=== PATIENT | female | born 1960 | race American Indian/Alaskan Native ===

== ENCOUNTER 2019-03-03 22:36 | Inpatient (IN) | payer BC ==
[2019-03-03 23:28] LABS: Basophils # (Auto) 0.1 K/mm3 (0.0-0.1); Basophils % (Auto) 2.1 % (0.0-1.8); Eosinophils # (Auto) 0.1 K/mm3 (0.0-0.4); Eosinophils % (Auto) 1.4 % (0.0-4.3); Hematocrit 40.6 % (30.3-42.9); Hemoglobin 13.6 gm/dl (10.1-14.3); Lymphocytes # (Auto) 1.7 K/mm3 (1.2-5.4); Lymphocytes % (Auto) 29.8 % (13.4-35.0); Mean Corpuscular HGB Conc 34 % (30-34); Mean Corpuscular Volume 90 fl (79-97); Monocytes # (Auto) 0.6 K/mm3 (0.0-0.8); Monocytes % (Auto) 10.3 % (0.0-7.3); Platelet Count 129 K/mm3 (140-440); Red Blood Count 4.51 M/mm3 (3.65-5.03); Red Cell Distribution Width 15.7 % (13.2-15.2)
[2019-03-03 23:38] LABS: INR 1.02 (0.87-1.13)
[2019-03-03 23:55] LABS: Creatine Kinase MB 1.9 ng/mL (0.0-4.0)
--- NOTE | 2019-03-03 23:55 | XRay Report ---
CHEST 1 VIEW INDICATION / CLINICAL INFORMATION: Syncope. COMPARISON: None available. FINDINGS: SUPPORT DEVICES: ICD is in place on the left. HEART / MEDIASTINUM: Slightly enlarged LUNGS / PLEURA: No significant pulmonary or pleural abnormality. No pneumothorax. ADDITIONAL FINDINGS: No significant additional findings. IMPRESSION: 1. No acute findings. Signer Name: Chuckie Lockhart MD Signed: 03/03/2019 11:50 PM Workstation Name: [id number]
[2019-03-03 23:57] LABS: Alanine Aminotransferase 10 units/L (7-56); Albumin 3.8 g/dL (3.9-5); BUN/Creatinine Ratio 24; Blood Urea Nitrogen 17 mg/dL (7-17); Calcium 9.2 mg/dL (8.4-10.2); Hemolysis Index 2
--- NOTE | 2019-03-04 00:05 | Cat Scan Report ---
Head CT without intravenous contrast INDICATION: Syncope COMPARISON: None FINDINGS: The ventricles are normal in size and position. No hemorrhage or extra-axial fluid collecti on. No edema or mass effect. No focal infarct seen. Portions of the sinuses visualized are clear. No skull fracture identified. IMPRESSION: Negative head CT Automated exposure control was utilized to diminish radiation dose Signer Name: Chuckie Lockhart MD Signed: 03/04/2019 12:00 AM Workstation Name: [id number]
--- NOTE | 2019-03-04 00:59 | Emergency Department Report ---
ED Syncope HPI - General Chief Complaint: Syncope Stated Complaint: SYNCOPE Time Seen by Provider: 03/03/19 22:53 Source: patient, family, EMS - History of Present Illness Initial Comments: patient presents to ER via EMS after she went unresponsive for 15-30 seconds while seating at a table to eat dinner. She has a h/o chf, htn, aicd dependent. Prior to her syncopal episode, she felt her heart racing, but no chest pain. She also denies any firing of her AICD, as she has experienced that in the past. Timing/Prior Episodes: single episode today Precipitating Factors: Positive: lightheadedness, rapid heart beat Context: sitting Loss of Consciousness: brief (seconds) Current Symptoms: back to normal - Related Data Allergies/Adverse Reactions: Allergies codeine Allergy (Verified 03/03/19 22:53) Rash ED Review of Systems ROS: Stated complaint: SYNCOPE Other details as noted in HPI Comment: All other systems reviewed and negative Cardiovascular: syncope Gastrointestinal: denies: abdominal pain, nausea, vomiting ED Past Medical Hx - Past Medical History Hx Hypertension: Yes Hx CVA: Yes (no deficits) Hx Heart Attack/AMI: Yes Hx Congestive Heart Failure: Yes - Surgical History Hx Internal Defibrillator: Yes Additional Surgical History: , breast reduction - Social History Smoking Status: Never Smoker Substance Use Type: None ED Physical Exam - General Limitations: No Limitations General appearance: alert, in no apparent distress - Head Head exam: Present: atraumatic, normocephalic - Eye Eye exam: Present: normal appearance, PERRL, EOMI - ENT ENT exam: Present: normal exam, normal orophraynx - Neck Neck exam: Present: normal inspection - Respiratory Respiratory exam: Present: normal lung sounds bilaterally - Cardiovascular Cardiovascular Exam: Present: regular rate, normal rhythm - GI/Abdominal GI/Abdominal exam: Present: soft, normal bowel sounds - Neurological Exam Neurological exam: Present: alert, oriented X3, CN II-XII intact - Psychiatric Psychiatric exam: Present: normal affect - Skin Skin exam: Present: warm ED Course Vital Signs 03/03/19 03/03/19 23:03 23:16 Temperature 98.4 F Pulse Rate 94 H Respiratory 20 20 Rate Blood Pressure 124/74 [Left] O2 Sat by Pulse 98 98 Oximetry ED Medical Decision Making - Lab Data Result diagrams: 03/03/19 23:14 03/03/19 23:14 - EKG Data Interpretation: nonspecific ST-T wave vicky - Radiology Data Radiology results: report reviewed - Medical Decision Making 58 y.o female with recent syncope. [place] [facility] [place] Critical care attestation.: If time is entered above; I have spent that time in minutes in the direct care of this critically ill patient, excluding procedure time. ED Disposition Clinical Impression: Syncope Qualifiers: Syncope type: unspecified Qualified Code(s): R55 - Syncope and collapse Disposition: OP ADMIT IP TO THIS HOSP Is pt being admited?: Yes Does the pt Need Aspirin: No Condition: Stable Instructions: Syncope (ED) Referrals: LULA STEPHENSON MD [Primary Care Provider] - 3-5 Days
[2019-03-04] MEDS ORDERED: TYLENOL PO PRN (01:26)
[2019-03-04] MEDS ORDERED: ZOFRAN IV PRN (01:26)
[2019-03-04] MEDS ORDERED: SODIUM CHLORIDE FLUSH SYRINGE 10 ML IV PRN (01:26)
[2019-03-04] MEDS ORDERED: K-DUR PO ONE (01:33)
--- NOTE | 2019-03-04 02:21 | History and Physical Report ---
<LORETO VILLAGOMEZ - Last Filed: 03/04/19 02:38> History of Present Illness Date of examination: 03/04/19 Date of admission: 03/04/2019 Chief complaint: Syncopal episode History of present illness: 58-year-old -[place] female with history of CHF with AICD in situ, HTN, HLD, and questionable history of TIA presents [facility] ED via EMS with complaint of syncopal episode x1. Pt's daughter is present at bedside and has assisted with providing history. Pt states that she was at a restaurant and sitting at the table to have dinner with her family, when she felt like her heart was racing. Shortly after pt experienced a syncopal episode and doesn't recall the event. As per pt's daughter, her mother's head tilted forward, eyes closed and her mouth was open with small amount of drool. The daughter gave her mother ASA 81mg x2 and attempted to check her BP, but was unable to get an accurate reading. EMS was called and she was transported to our facility for further evaluation. 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 She goes to [facility]'s cardiology clinic. Pt states that she had an echocardiogram earlier this year which showed an ejection fraction of 20-25%. Denies: Chest pain, shortness of breath, or firing of AICD, headache, fever, nausea, or recent sick contact Past History Past Medical History: heart failure, hypertension, hyperlipidemia, other (hx TIA x2 according to pt and her daughter) Past Surgical History: , Other (s/p ICD, breast reduction surgery) Social history: lives with family Family history: no significant family history Medications and Allergies Allergies Allergy/AdvReac Type Severity Reaction Status Date / Time codeine Allergy Rash Verified 03/03/19 22:53 Active Meds: Active Medications Acetaminophen (Tylenol) 650 mg PO Q4H PRN PRN Reason: Pain MILD(1-3)/Fever >100.5/ODOM Docusate Sodium (Colace) 100 mg PO BID KEARA Enoxaparin Sodium (Lovenox) 40 mg SUB-Q QDAY KEARA Ondansetron HCl (Zofran) 4 mg IV Q8H PRN PRN Reason: Nausea And Vomiting Sodium Chloride (Sodium Chloride Flush Syringe 10 Ml) 10 ml IV BID KEARA Sodium Chloride (Sodium Chloride Flush Syringe 10 Ml) 10 ml IV PRN PRN PRN Reason: LINE FLUSH Review of Systems All systems: negative (reviewed and no additional remarkable complaints except as noted) Constitutional: fatigue Cardiovascular: palpitations, high blood pressure Neurological: syncope Exam - Physical Exam Narrative exam: Physical exam General appearance: Present: No acute distress alert and oriented 3, pleasant, obese, -[place] adult female - EENT Eyes: Present: PERRL, EOM intact ENT: hearing intact, normal dentition - Neck Neck: Present: supple, normal ROM - Respiratory Respiratory effort: Non-labored Respiratory:CTA laterally - Cardiovascular Heart rate: 93 (bpm) Rhythm: SR, nonspecific T-wave abnormality Heart Sounds: Present: S1 & S2. Absent: rub, click - Extremities Extremities: no ischemia, pulses intact, abnormal (BLE trace edema) - Peripheral Assessment Peripheral Pulses: within normal limits - Abdominal General gastrointestinal: Obese, soft, non-tender, normal bowel sounds - Integumentary Integumentary: Present: warm, dry - Musculoskeletal Musculoskeletal: Normal extremities - Psychiatric Psychiatric: Appropriate for situation, cooperative - Constitutional Vitals: Temp Pulse Resp BP Pulse Ox 98.4 F 82 14 110/77 98 03/03/19 23:03 03/04/19 01:45 03/04/19 01:45 03/04/19 01:45 03/04/19 01:45 Results - Labs CBC & Chem 7: 03/03/19 23:14 03/03/19 23:14 Labs: Laboratory Last Values WBC 5.8 K/mm3 (4.5-11.0) 03/03/19 23:14 RBC 4.51 M/mm3 (3.65-5.03) 03/03/19 23:14 Hgb 13.6 gm/dl (10.1-14.3) 03/03/19 23:14 Hct 40.6 % (30.3-42.9) 03/03/19 23:14 MCV 90 fl (79-97) 03/03/19 23:14 MCH 30 pg (28-32) 03/03/19 23:14 MCHC 34 % (30-34) 03/03/19 23:14 RDW 15.7 % (13.2-15.2) H 03/03/19 23:14 Plt Count 129 K/mm3 (140-440) L 03/03/19 23:14 Lymph % (Auto) 29.8 % (13.4-35.0) 03/03/19 23:14 [place] % (Auto) 10.3 % (0.0-7.3) H 03/03/19 23:14 Eos % (Auto) 1.4 % (0.0-4.3) 03/03/19 23:14 Baso % (Auto) 2.1 % (0.0-1.8) H 03/03/19 23:14 Lymph # 1.7 K/mm3 (1.2-5.4) 03/03/19 23:14 [place] # 0.6 K/mm3 (0.0-0.8) 03/03/19 23:14 Eos # 0.1 K/mm3 (0.0-0.4) 03/03/19 23:14 Baso # 0.1 K/mm3 (0.0-0.1) 03/03/19 23:14 Seg Neutrophils % 56.4 % (40.0-70.0) 03/03/19 23:14 Seg Neutrophils # 3.3 K/mm3 (1.8-7.7) 03/03/19 23:14 PT 13.1 Sec. (12.2-14.9) 03/03/19 23:14 INR 1.02 (0.87-1.13) 03/03/19 23:14 Sodium 141 mmol/L (137-145) 03/03/19 23:14 Potassium 3.1 mmol/L (3.6-5.0) L 03/03/19 23:14 Chloride 102.7 mmol/L (98-107) 03/03/19 23:14 Carbon Dioxide 29 mmol/L (22-30) 03/03/19 23:14 12 mmol/L 03/03/19 23:14 BUN 17 mg/dL (7-17) 03/03/19 23:14 0.7 mg/dL (0.7-1.2) 03/03/19 23:14 Estimated GFR > 60 ml/min 03/03/19 23:14 24 % 03/03/19 23:14 Glucose 106 mg/dL (65-100) H 03/03/19 23:14 Calcium 9.2 mg/dL (8.4-10.2) 03/03/19 23:14 0.30 mg/dL (0.1-1.2) 03/03/19 23:14 AST 13 units/L (5-40) 03/03/19 23:14 ALT 10 units/L (7-56) 03/03/19 23:14 99 units/L (35-129) 03/03/19 23:14 66 units/L (30-135) 03/03/19 23:14 CK-MB (CK-2) 1.9 ng/mL (0.0-4.0) 03/03/19 23:14 CK-MB (CK-2) Rel Index 2.8 (0-4) 03/03/19 23:14 < 0.010 ng/mL (0.00-0.029) 03/03/19 23:14 8.2 g/dL (6.3-8.2) 03/03/19 23:14 3.8 g/dL (3.9-5) L 03/03/19 23:14 0.9 % 03/03/19 23:14 - Imaging and Cardiology EKG: image reviewed (93bpm SR ) Chest x-ray: report reviewed (LUNGS / PLEURA: No significant pulmonary or pleural abnormality. No pneumothorax), image reviewed Imaging and Cardiology: CT Head: Findings: The ventricles are normal in size and position. No hemorrhage or extra-axial fluid collection. No edema or mass effect. No focal infarct seen. Portions of the sinuses visualized are clear. No skull fracture identified. Impression: Negative head CT Assessment and Plan Assessment and plan: 58-year-old -[place] female with history of CHF with AICD in situ, HTN, HLD, and questionable history of TIA presents [facility] ED via EMS with complaint of syncopal episode x1. Syncope -Witnessed syncopal episode -Patient was unresponsive for 15-30 seconds while sitting at the table with family -CT head negative for acute abnormality -Carotid Doppler pending -Pt states that she has history of TIA 2 ( 2013 & 2016) -Neurology consulted -on ASA and statin Hypokalemia -Potassium on admission 3.1 -Received potassium replacement -Continue to monitor electrolytes -Fleet as needed CHF -AICD in situ -Pt reports EF 20-25% seen on Echo done earlier this year -Resume heart failure meds to optimize cardiac function once med rec has been completed -Cardiology consulted ([facility]) -Troponin mehran x1, continue to trend HTN -Monitor BP -Syndrome home antihypertensive once med rec has been completed -IV hydralazine when necessary HLD -Lipid panel pending -on statin DVT PPX -on Lovenox Advance Directives: No VTE prophylaxis?: Chemical Plan of care discussed with patient/family: Yes <MICHELLE LOPEZ - Last Filed: 03/04/19 05:35> History of Present Illness Date of admission: 03/04/19 02:23 Medications and Allergies Active Meds: Active Medications Acetaminophen (Tylenol) 650 mg PO Q4H PRN PRN Reason: Pain MILD(1-3)/Fever >100.5/ODOM Atorvastatin Calcium (Lipitor) 40 mg PO QHS KEARA Docusate Sodium (Colace) 100 mg PO BID KEARA Enoxaparin Sodium (Lovenox) 40 mg SUB-Q QDAY KEARA Hydralazine HCl (Apresoline) 10 mg IV Q4HR PRN PRN Reason: Blood Pressure Ondansetron HCl (Zofran) 4 mg IV Q8H PRN PRN Reason: Nausea And Vomiting Sodium Chloride (Sodium Chloride Flush Syringe 10 Ml) 10 ml IV BID KEARA Sodium Chloride (Sodium Chloride Flush Syringe 10 Ml) 10 ml IV PRN PRN PRN Reason: LINE FLUSH Exam - Constitutional Vitals: Temp Pulse Resp BP Pulse Ox 98.4 F 71 18 90/60 97 03/03/19 23:03 03/04/19 03:15 03/04/19 03:15 03/04/19 03:15 03/04/19 03:15 Results - Labs CBC & Chem 7: 03/03/19 23:14 03/03/19 23:14 Labs: Laboratory Last Values WBC 5.8 K/mm3 (4.5-11.0) 03/03/19 23:14 RBC 4.51 M/mm3 (3.65-5.03) 03/03/19 23:14 Hgb 13.6 gm/dl (10.1-14.3) 03/03/19 23:14 Hct 40.6 % (30.3-42.9) 03/03/19 23:14 MCV 90 fl (79-97) 03/03/19 23:14 MCH 30 pg (28-32) 03/03/19 23:14 MCHC 34 % (30-34) 03/03/19 23:14 RDW 15.7 % (13.2-15.2) H 03/03/19 23:14 Plt Count 129 K/mm3 (140-440) L 03/03/19 23:14 Lymph % (Auto) 29.8 % (13.4-35.0) 03/03/19 23:14 [place] % (Auto) 10.3 % (0.0-7.3) H 03/03/19 23:14 Eos % (Auto) 1.4 % (0.0-4.3) 03/03/19 23:14 Baso % (Auto) 2.1 % (0.0-1.8) H 03/03/19 23:14 Lymph # 1.7 K/mm3 (1.2-5.4) 03/03/19 23:14 [place] # 0.6 K/mm3 (0.0-0.8) 03/03/19 23:14 Eos # 0.1 K/mm3 (0.0-0.4) 03/03/19 23:14 Baso # 0.1 K/mm3 (0.0-0.1) 03/03/19 23:14 Seg Neutrophils % 56.4 % (40.0-70.0) 03/03/19 23:14 Seg Neutrophils # 3.3 K/mm3 (1.8-7.7) 03/03/19 23:14 PT 13.1 Sec. (12.2-14.9) 03/03/19 23:14 INR 1.02 (0.87-1.13) 03/03/19 23:14 Sodium 141 mmol/L (137-145) 03/03/19 23:14 Potassium 3.1 mmol/L (3.6-5.0) L 03/03/19 23:14 Chloride 102.7 mmol/L (98-107) 03/03/19 23:14 Carbon Dioxide 29 mmol/L (22-30) 03/03/19 23:14 12 mmol/L 03/03/19 23:14 BUN 17 mg/dL (7-17) 03/03/19 23:14 0.7 mg/dL (0.7-1.2) 03/03/19 23:14 Estimated GFR > 60 ml/min 03/03/19 23:14 24 % 03/03/19 23:14 Glucose 106 mg/dL (65-100) H 03/03/19 23:14 Calcium 9.2 mg/dL (8.4-10.2) 03/03/19 23:14 0.30 mg/dL (0.1-1.2) 03/03/19 23:14 AST 13 units/L (5-40) 03/03/19 23:14 ALT 10 units/L (7-56) 03/03/19 23:14 99 units/L (35-129) 03/03/19 23:14 66 units/L (30-135) 03/03/19 23:14 CK-MB (CK-2) 1.9 ng/mL (0.0-4.0) 03/03/19 23:14 CK-MB (CK-2) Rel Index 2.8 (0-4) 03/03/19 23:14 < 0.010 ng/mL (0.00-0.029) 03/04/19 04:12 8.2 g/dL (6.3-8.2) 03/03/19 23:14 3.8 g/dL (3.9-5) L 03/03/19 23:14 0.9 % 03/03/19 23:14 Assessment and Plan Assessment and plan: 58 year old woman with history of hypertension, CHF, hyperlipidemia comes emergency room with complaints of syncope. Agree with workup as discussed above
[2019-03-04] MEDS ORDERED: SODIUM CHLORIDE FLUSH SYRINGE 10 ML INJ PRN (02:23)
[2019-03-04] MEDS ORDERED: APRESOLINE IV PRN (02:26)
--- NOTE | 2019-03-04 09:27 | Progress Note ---
Subjective Date of service: 03/04/19 Interval history: see the ED note and review the CT the scan is normal and there was no witnessed seizure will gey EEG saw note about no firing of the electrical device but question of the assessment of this info. rec Carotid u/s Objective - Vital Sign Vital Signs - 12hr 03/03/19 03/03/19 03/03/19 23:03 23:16 23:44 Temperature 98.4 F Pulse Rate 94 H 90 88 Respiratory 20 16 15 Rate Blood Pressure 128/74 108/83 Blood Pressure 124/74 [Left] O2 Sat by Pulse 98 100 99 Oximetry 03/03/19 03/04/19 03/04/19 23:46 00:00 00:16 Temperature Pulse Rate 90 88 82 Respiratory 19 18 21 Rate Blood Pressure 109/67 116/74 110/80 Blood Pressure [Left] O2 Sat by Pulse 100 99 100 Oximetry 03/04/19 03/04/19 03/04/19 00:31 00:45 01:00 Temperature Pulse Rate 93 H 82 85 Respiratory 18 14 14 Rate Blood Pressure 113/63 113/63 106/76 Blood Pressure [Left] O2 Sat by Pulse 98 100 100 Oximetry 03/04/19 03/04/19 03/04/19 01:15 01:30 01:45 Temperature Pulse Rate 84 83 82 Respiratory 22 15 14 Rate Blood Pressure 118/84 111/82 110/77 Blood Pressure [Left] O2 Sat by Pulse 96 98 Oximetry 03/04/19 03/04/19 03/04/19 02:00 02:15 02:30 Temperature Pulse Rate 84 84 80 Respiratory 14 20 13 Rate Blood Pressure 113/77 109/68 100/61 Blood Pressure [Left] O2 Sat by Pulse 97 96 97 Oximetry 03/04/19 03/04/19 03/04/19 02:45 03:00 03:15 Temperature Pulse Rate 81 73 71 Respiratory 19 18 18 Rate Blood Pressure 109/68 98/68 90/60 Blood Pressure [Left] O2 Sat by Pulse 100 98 97 Oximetry 03/04/19 05:57 Temperature Pulse Rate 80 Respiratory Rate Blood Pressure Blood Pressure [Left] O2 Sat by Pulse Oximetry - Laboratory Findings CBC and BMP: 03/03/19 23:14 03/03/19 23:14 Abnormal Lab Findings: Abnormal Labs 03/03/19 03/03/19 23:14 23:14 RDW 15.7 H Plt Count 129 L [place] % (Auto) 10.3 H Baso % (Auto) 2.1 H Potassium 3.1 L Glucose 106 H Albumin 3.8 L
--- NOTE | 2019-03-04 09:51 | Progress Note ---
Assessment and Plan Assessment and plan: 58-year-old -[place] female with history of CHF with AICD in situ, HTN, HLD, and questionable history of TIA presents [facility] ED via EMS with complaint of syncopal episode x1. Syncope -Neurology consult appreciated, no evidence of seizure, fup carotid us and echo -orthostatics unremarkable Hypokalemia repleted, recheck and check mg CHF, ef 20%, chronic sytolic cont cardiac meds, fup echo sp ICD HTN cont bp meds HLD -Lipid panel pending -on statin DVT PPX -on Lovenox Hospitalist Physical - Constitutional Vitals: Temp Pulse Resp BP Pulse Ox 97.7 F 80 18 104/75 100 03/04/19 07:53 03/04/19 05:57 03/04/19 07:53 03/04/19 07:53 03/04/19 04:56 Results - Labs CBC & Chem 7: 03/03/19 23:14 03/03/19 23:14 Labs: Laboratory Last Values WBC 5.8 K/mm3 (4.5-11.0) 03/03/19 23:14 RBC 4.51 M/mm3 (3.65-5.03) 03/03/19 23:14 Hgb 13.6 gm/dl (10.1-14.3) 03/03/19 23:14 Hct 40.6 % (30.3-42.9) 03/03/19 23:14 MCV 90 fl (79-97) 03/03/19 23:14 MCH 30 pg (28-32) 03/03/19 23:14 MCHC 34 % (30-34) 03/03/19 23:14 RDW 15.7 % (13.2-15.2) H 03/03/19 23:14 Plt Count 129 K/mm3 (140-440) L 03/03/19 23:14 Lymph % (Auto) 29.8 % (13.4-35.0) 03/03/19 23:14 [place] % (Auto) 10.3 % (0.0-7.3) H 03/03/19 23:14 Eos % (Auto) 1.4 % (0.0-4.3) 03/03/19 23:14 Baso % (Auto) 2.1 % (0.0-1.8) H 03/03/19 23:14 Lymph # 1.7 K/mm3 (1.2-5.4) 03/03/19 23:14 [place] # 0.6 K/mm3 (0.0-0.8) 03/03/19 23:14 Eos # 0.1 K/mm3 (0.0-0.4) 03/03/19 23:14 Baso # 0.1 K/mm3 (0.0-0.1) 03/03/19 23:14 Seg Neutrophils % 56.4 % (40.0-70.0) 03/03/19 23:14 Seg Neutrophils # 3.3 K/mm3 (1.8-7.7) 03/03/19 23:14 PT 13.1 Sec. (12.2-14.9) 03/03/19 23:14 INR 1.02 (0.87-1.13) 03/03/19 23:14 Sodium 141 mmol/L (137-145) 03/03/19 23:14 Potassium 3.1 mmol/L (3.6-5.0) L 03/03/19 23:14 Chloride 102.7 mmol/L (98-107) 03/03/19 23:14 Carbon Dioxide 29 mmol/L (22-30) 03/03/19 23:14 12 mmol/L 03/03/19 23:14 BUN 17 mg/dL (7-17) 03/03/19 23:14 0.7 mg/dL (0.7-1.2) 03/03/19 23:14 Estimated GFR > 60 ml/min 03/03/19 23:14 24 % 03/03/19 23:14 Glucose 106 mg/dL (65-100) H 03/03/19 23:14 Calcium 9.2 mg/dL (8.4-10.2) 03/03/19 23:14 0.30 mg/dL (0.1-1.2) 03/03/19 23:14 AST 13 units/L (5-40) 03/03/19 23:14 ALT 10 units/L (7-56) 03/03/19 23:14 99 units/L (35-129) 03/03/19 23:14 66 units/L (30-135) 03/03/19 23:14 CK-MB (CK-2) 1.9 ng/mL (0.0-4.0) 03/03/19 23:14 CK-MB (CK-2) Rel Index 2.8 (0-4) 03/03/19 23:14 < 0.010 ng/mL (0.00-0.029) 03/04/19 04:12 8.2 g/dL (6.3-8.2) 03/03/19 23:14 3.8 g/dL (3.9-5) L 03/03/19 23:14 0.9 % 03/03/19 23:14 Active Medications - Current Medications Current Medications: Generic Name Dose Route Start Last Admin Trade Name Freq PRN Reason Stop Dose Admin Acetaminophen 650 mg 03/04/19 01:26 Tylenol PO Q4H PRN Pain MILD(1-3)/Fever >100.5/ODOM Atorvastatin Calcium 40 mg 03/04/19 22:00 Lipitor PO QHS [facility] Docusate Sodium 100 mg 03/04/19 10:00 Colace PO BID [facility] Enoxaparin Sodium 40 mg 03/04/19 10:00 Lovenox SUB-Q QDAY [facility] Hydralazine HCl 10 mg 03/04/19 02:26 Apresoline IV Q4HR PRN Blood Pressure Ondansetron HCl 4 mg 03/04/19 01:26 Zofran IV Q8H PRN Nausea And Vomiting Sodium Chloride 10 ml 03/04/19 10:00 Sodium Chloride Flush Syringe 10 Ml IV BID KEARA Sodium Chloride 10 ml 03/04/19 01:26 Sodium Chloride Flush Syringe 10 Ml IV PRN PRN LINE FLUSH
--- NOTE | 2019-03-04 10:52 | Vascular Lab Report ---
"DUPLEX DOPPLER ULTRASOUND CAROTID, BILATERAL INDICATION: syncope new onset, hx chf with AICD. FINDINGS: RIGHT CAROTID: Small amount of calcified atherosclerotic plaque. Right ICA peak systolic velocity: 70 cm/sec. Right Vertebral Artery: Antegrade flow. LEFT CAROTID: Small amount of calcified atherosclerotic plaque. Left ICA peak systolic velocity: 84 cm/sec. Left Vertebral Artery: Antegrade flow. IMPRESSION: 1. Right Internal Carotid Artery: Less than 50% diameter stenosis. 2. Left Internal Carotid Artery: Less than 50% diameter stenosis. Velocity criteria are extrapolated from diameter data as defined by the Society of Radiologists in Ul trasound Consensus Conference, Radiology 2003; 229;340-346. Degree of Stenosis (%) || ICA PSV (cm/sec) || Plaque estimate (%) || ICA/CCA PSV Ratio Normal <125 None <2.0 <50 <125 <50 <2.0 50-69 125-230 50 2.0-4.0 70 but less than 100 >230 50 >4.0 Near occlusion High, low, or none visible variable Total occlusion None visible; no lumen N/A Signer Name: Alex Suarez MD Signed: 03/04/2019 10:47 AM Workstation Name: [id number]"
--- NOTE | 2019-03-04 12:09 | Event Note ---
Date: 03/04/19 Cardiology note dictated #1 syncope? TIA #2 cardiomyopathy last ejection fraction was 25% followed at [facility] #3 hypertension #4 hyperlipidemia #5 obesity Patient is seen for cardiac evaluation. Clinically cardiac status is stable. Sulfa rhythm strips have been stable. Neuro workup pending patient will monitor and follow closely with you. Will review the echo that has been better. Thank you for reflux. In the care of this patient Dr. ANY Gtuierrez
[2019-03-04] MEDS: LOVENOX SUB-Q SCH (13:11)
[2019-03-04] MEDS: COLACE PO SCH ×2 (13:11→22:22)
[2019-03-04] MEDS: SODIUM CHLORIDE FLUSH SYRINGE 10 ML IV SCH ×2 (13:11→22:22)
[2019-03-04] MEDS ORDERED: ULTRAM PO PRN (18:04)
[2019-03-04] MEDS ORDERED: LASIX PO PRN (18:04)
[2019-03-04] MEDS ORDERED: METOPROLOL SUCCINATE 200 MG PO SCH (18:15)
[2019-03-04] MEDS: TOPROL XL PO SCH (18:40)
[2019-03-04] MEDS: NORVASC PO SCH (18:40)
[2019-03-04] MEDS: PLAVIX PO SCH (18:40)
--- NOTE | 2019-03-04 21:32 | Consultation ---
CARDIOLOGY EVALUATION REASON FOR EVALUATION: Syncope. HISTORY OF PRESENT ILLNESS: The patient is a 58-year-old female who comes here to the hospital because of a questionable syncopal episode. The patient apparently was sitting and eating at a restaurant. She had some palpitations and felt funny, but no definite chest pain. She did not experience an electric shock from her AICD. She does know how it feels as she had a shock 1 year ago while she was on a dance floor. Apparently, the daughter noticed the mother that she was staring and she was shaking as well as she was drooling. The episode lasted about 30 seconds and she had no further symptoms. She gives history of TIA in the past. Neurology evaluation is in progress. Her cardiac history dates back to 2009 when she was diagnosed to have cardiomyopathy and this is probably a nonischemic cardiomyopathy. She also had an AICD placement. Dr. De La Garza at [place] follows her. The patient has a history of hypertension and hyperlipidemia. No definite prior myocardial infarction. At present, she denies chest pain, difficulty in breathing, palpitations or any other cardiac symptoms. The patient had a section and breast reduction in the past. REVIEW OF SYSTEMS: HEAD, EYES, EARS, NOSE AND THROAT: No symptoms. ENDOCRINE: No symptoms. No history of diabetes. GASTROINTESTINAL: No abdominal pain, nausea, or vomiting. Bowel habits have been regular. GENITOURINARY: History of kidney stones in the remote past. CENTRAL NERVOUS SYSTEM: History of TIA in the past. No prior history of convulsive disorder. PERSONAL HISTORY: Nonsmoker. Drinks alcohol occasionally. PHYSICAL EXAMINATION: GENERAL: Adult obese female, in no acute distress. VITAL SIGNS: Blood pressure 104/75, pulse 80, respirations 18. HEAD, EYES, EARS, NOSE AND THROAT: Unremarkable. NECK: Supple. No thyromegaly. Both carotids are palpable and equal. Neck veins are flat. CHEST: Symmetrical. LUNGS: Essentially clear. CARDIOVASCULAR: S1 and S2 are heard well. Heart tones are rather distant. ABDOMEN: Soft, nontender. No hepatosplenomegaly. EXTREMITIES: No edema or calf tenderness. DIAGNOSTIC DATA: EKG shows sinus rhythm. Rhythm strips are reviewed, occasional PVCs are present. No complex arrhythmias were noted. LABORATORY DATA: Hemoglobin 13.6, hematocrit 40.6. Sodium 141, potassium 3.1, BUN 17, creatinine 0.7. Troponin negative. CK-MB negative. Blood sugar 106. IMPRESSION: 1. Questionable near syncopal episode ? transient ischemic attack. 2. Nonischemic cardiomyopathy. According to the patient in October, her ejection fraction was 25%. The echo has been done and we will review the same once available. 3. Hypertension. 4. Hyperlipidemia. The patient is seen for cardiac evaluation. Clinically, cardiac status is stable. Rhythm has been stable. Plan is to review the echocardiogram and monitor her closely along with you. The event does not appear to be secondary to a cardiac arrhythmia with shock and it could well be a transient ischemic episode. Neurological workup is in progress. The patient will be monitored and followed with you. Thank you, Dr. Blood for allowing me to participate in the care of this pleasant lady. JOB# [id number] JACQUELINE/NTS
[2019-03-04] MEDS ORDERED: NON-FORMULARY (Atorvastatin [Lipitor] 80 MG) PO SCH (22:00)
[2019-03-04] MEDS ORDERED: NON-FORMULARY (Sacubitril/Valsartan [Entresto 97 Mg-103 Mg Tablet] 1 EACH) PO SCH ×2 (22:00)
[2019-03-04] MEDS: ENTRESTO 49-51 MG PO SCH (22:22)
--- NOTE | 2019-03-05 00:08 | Consultation ---
HISTORY OF PRESENT ILLNESS: This is a 58-year-old black female who presents to [facility]. This patient was eating at a restaurant, witnessed by her daughter, she had a loss of consciousness, fell to the side, then began jerking. She has a defibrillator in place, this has not been accessed recently to see whether this defibrillator triggered at this point. Recently, she has stopped taking metoprolol. She has a history of heart failure. ALLERGIES: She has allergies to CODEINE. FAMILY HISTORY: Negative for alcohol or drug use. SOCIAL HISTORY: Does not smoke, does not drink. PHYSICAL EXAMINATION: VITAL SIGNS: Blood pressure 115/80, pulse rate 86, respirations 18. NEUROLOGIC: Cranial nerves 2-12 are intact. No seizure activity noted. Motor tone is symmetrical. Healthcare Liaison strength is equal. Speech is clear, fully oriented, interacts with family who were present in the room at the time of my evaluation, entirely okay. I do not find any evidence of focal weakness, no jerking is noted of the face. IMPRESSION: By direct witnessing, this was a focal seizure, then generalized. The patient has no remembrance of what happened. Clearly, she may have had stopped her metoprolol, but in my experience the metoprolol being discontinued does not trigger seizures. We will get an EEG. We cannot get an MRI scan obviously because she has a defibrillator. I did recommend to the nursing staff that someway the defibrillator should be interrogated to see if it did trigger during this event. It is quite possible and I have seen occasionally defibrillators produce jerking movements that seem to represent seizures to bystanders. This should be a course considered as an alternative explanation for the situation as this may be as well a way of explaining what occurred. We will review over her echocardiogram. We will get the carotid artery ultrasound and we will get an EEG. I did recommend the patient remain in the hospital until the sestamibi done. I felt that this is medically necessary. I did counseling program leader her about this. The daughter witnessed this conversation. JOB# [id number] THEA/NTS
[2019-03-05 04:12] LABS: Basophils % (Auto) 0.4 % (0.0-1.8); Eosinophils # (Auto) 0.1 K/mm3 (0.0-0.4); Eosinophils % (Auto) 2.3 % (0.0-4.3); Hematocrit 38.9 % (30.3-42.9); Hemoglobin 12.7 gm/dl (10.1-14.3); Lymphocytes # (Auto) 1.7 K/mm3 (1.2-5.4); Lymphocytes % (Auto) 33.4 % (13.4-35.0); Mean Corpuscular HGB Conc 33 % (30-34); Mean Corpuscular Volume 90 fl (79-97); Monocytes # (Auto) 0.4 K/mm3 (0.0-0.8); Monocytes % (Auto) 8.1 % (0.0-7.3); Platelet Count 126 K/mm3 (140-440); Red Cell Distribution Width 15.5 % (13.2-15.2)
[2019-03-05 04:32] LABS: BUN/Creatinine Ratio 23; Blood Urea Nitrogen 14 mg/dL (7-17); Calcium 8.8 mg/dL (8.4-10.2); LDL Cholesterol,Direct 91 mg/dL (50-130)
[2019-03-05 04:33] LABS: Chol/HDL Ratio 2.75 %; HDL Cholesterol 52 mg/dL (40-59); Hemolysis Index 1
[2019-03-05] MEDS ORDERED: PROVENTIL IH PRN (05:18)
--- NOTE | 2019-03-05 07:46 | Discharge Summary ---
Providers - Providers Date of Admission: 03/04/19 02:23 Attending physician: DANIELLE NORWOOD MD 03/04/19 01:26 Consult to Physician [CONS] Routine Comment: Consulting Provider: MARY MAY Physician Instructions: Reason For Exam: syncope, hx chf with AICD 03/04/19 01:32 Occupational Therapy Evaluate and Treat [CONS] Routine Comment: Reason For Exam: assess gait neuro deficits new sycope Physical Therapy Evaluation and Treat [CONS] Routine Comment: Reason For Exam: assess gait neuro deficits new sycope 03/04/19 02:14 Consult to Physician [CONS] Routine Comment: Consulting Provider: BETITO TENORIO Physician Instructions: Reason For Exam: new syncopal episode, hx of tia x2 03/04/19 02:24 Consult to Dietitian/Nutrition [CONS] Routine Physician Instructions: Reason For Exam: Reason for Consult: Nutrition Recommendations Reason for Consult: Poor oral intake [facility]OR[facility] MD Hospitalization Condition: Stable Disposition: DC-30 STILL A PATIENT Exam - Constitutional Vitals: Temp Pulse Resp BP Pulse Ox 98.0 F 79 15 97/68 95 03/05/19 04:27 03/05/19 05:35 03/05/19 05:35 03/05/19 04:27 03/05/19 04:27 Plan Follow up with: LULA STEPHENSON MD [Primary Care Provider] - 3-5 Days
[2019-03-05] MEDS ORDERED: ZESTRIL PO SCH (10:00)
[2019-03-05] MEDS ORDERED: DEMADEX PO SCH ×2 (10:27→11:30)
[2019-03-05] MEDS: LOVENOX SUB-Q SCH (10:27)
[2019-03-05] MEDS: PLAVIX PO SCH (10:28)
[2019-03-05] MEDS: ENTRESTO 49-51 MG PO SCH (10:28)
[2019-03-05] MEDS: COLACE PO SCH (10:28)
[2019-03-05] MEDS: SODIUM CHLORIDE FLUSH SYRINGE 10 ML IV SCH (10:29)
[2019-03-05] MEDS: NORVASC PO SCH (10:35)
[2019-03-05] MEDS: TOPROL XL PO SCH (10:37)
[2019-03-05 10:39] VITALS: BP 101/72
--- NOTE | 2019-03-05 12:39 | Progress Note ---
Assessment and Plan ? Syncope / ? TIA Head CT with NAF. Carotid studies unremarkable. Telemetry reviewed with no arrhythmias since admission. Interrogate AICD. Nonischemic CMP LHC done 01/2016 showed 100% OM1 lesion, otherwise normal coronaires, EF 20%. Medical management recommended. No current clinical evidence of acutely decompensated HF. Echo reviewed - EF 10-15%, RV mildly dilated, pacemaker wire in RV, mild MR, mild TR, RVSP 45mmHg. Pt followed by Dr. De La Garza at [place]. Cont GDMT and PO diuretics as tolerated. Pt reports she takes home torsemide as needed. Recommend addition PO KCL 20mEq to as needed torsemide dosage. AICD in situ Implanted in 2009 - [facility]. Pt followed by Dr. De La Garza at [place]. Hypokalemia Repleted. Pt reports she takes home torsemide as needed. Recommend addition PO KCL 20mEq to as needed torsemide dosage. HTN HLP Obesity Currently stable cardiac status. Await AICD interrogation. Pending interrogation shows no gross abnormalities, pt may discharge home from cardiology standpoint on home cardiac regimen. Pt reports she takes home torsemide as needed. Recommend addition PO KCL 20mEq to as needed torsemide dosage. Recommend pt follow up with her primary patternmaker sample at [place], Dr. De La Garza, within 1-2 weeks of hospital discharge. Pt verbalizes understanding. The patient has been seen in conjunction with Dr. Roman who agrees with the assessment and plan of care. Subjective Date of service: 03/05/19 Principal diagnosis: syncope Interval history: pt sitting up at bedside, states she is feeling well today. tele reviewed - in SR with intermittent pacing, no acute events overnight. Objective Last Vital Signs Temp 98.0 F 03/05/19 04:27 Pulse 77 03/05/19 10:38 Resp 15 03/05/19 05:35 BP 101/72 03/05/19 10:38 Pulse Ox 95 03/05/19 04:27 - Physical Examination General: No Apparent Distress HEENT: Positive: PERRL, Normocephaly, Mucus Membranes Moist Neck: Positive: neck supple, trachea midline Cardiac: Positive: Reg Rate and Rhythm, S1/S2 Lungs: Positive: Decreased Breath Sounds Neuro: Positive: Grossly Intact Abdomen: Negative: Tender Skin: Negative: Rash, Wound Musculoskeletal: No Pain Extremities: Absent: edema - Labs and Meds Lipids 03/05/19 Range/Units 03:48 Triglycerides 85 (2-149) mg/dL Cholesterol 143 (50-199) mg/dL HDL Cholesterol 52 (40-59) mg/dL Cholesterol/HDL Ratio 2.75 % CBC 03/05/19 Range/Units 03:48 WBC 5.1 (4.5-11.0) K/mm3 RBC 4.30 (3.65-5.03) M/mm3 Hgb 12.7 (10.1-14.3) gm/dl Hct 38.9 (30.3-42.9) % Plt Count 126 L (140-440) K/mm3 Lymph # 1.7 (1.2-5.4) K/mm3 [place] # 0.4 (0.0-0.8) K/mm3 Eos # 0.1 (0.0-0.4) K/mm3 Baso # 0.0 (0.0-0.1) K/mm3 Comprehensive Metabolic Panel 03/04/19 03/05/19 Range/Units 14:55 03:48 Sodium 141 (137-145) mmol/L Potassium 3.4 L 3.8 (3.6-5.0) mmol/L Chloride 105.8 (98-107) mmol/L Carbon Dioxide 27 (22-30) mmol/L BUN 14 (7-17) mg/dL Creatinine 0.6 L (0.7-1.2) mg/dL Glucose 121 H (65-100) mg/dL Calcium 8.8 (8.4-10.2) mg/dL - Imaging and Cardiology EKG: report reviewed, image reviewed (93bpm SR ) - Telemetry EKG Rhythm: Sinus Rhythm
--- NOTE | 2019-03-05 14:22 | Event Note ---
Date: 03/05/19 AICD interrogation revealed one episode of VFib on 03/03/2019 @ 9:48PM which was terminated by one appropriate AICD shock. This event correlates to pt's reported syncopal episode. No other significant events. Normal device function. Suspect this episode was precipitated by hypokalemia. Serum K+ WNL this morning. Pt may discharge home from cardiology standpoint. At discharge, recommend rx for KCL supplementation 20mEq daily. D/w Dr. Blood. Follow up with Dr. De La Garza at [place] on 03/16/2019 @ 10:00AM. Assessment and plan reviewed with pt and she verbalizes understanding. Doug THOMPSON NP / DR. MAY
== END 2019-03-05 18:27 | disposition home or self-care (01) | DRG 69 ==
LOC: ED 22:36 → 4A 03-04 02:23
PROVIDERS: ADMIT Internal Medicine; ATTEND Internal Medicine
PROC: 4B02XTZ Measurement of Cardiac Defibrillator, External Approach (ICD-10-PCS; principal; 2019-03-05)
DX: G45.9 Transient cerebral ischemic attack, unspecified (principal); I49.01 Ventricular fibrillation; I50.22 Chronic systolic (congestive) heart failure; Z68.43 Body mass index [BMI] 50.0-59.9, adult; I42.8 Other cardiomyopathies; R55 Syncope and collapse; E87.6 Hypokalemia; E78.5 Hyperlipidemia, unspecified; E66.9 Obesity, unspecified; I11.0 Hypertensive heart disease with heart failure; Z88.5 Allergy status to narcotic agent; Z95.810 Presence of automatic (implantable) cardiac defibrillator; Z86.73 Personal history of transient ischemic attack (TIA), and cerebral infarction without residual deficits; I25.2 Old myocardial infarction
CPT/HCPCS: 36415; 70450; 71045; 80048; 80053; 80061; 82550; 82553; 83735; 84100; 84132; 84484; 85025; 85610; 93005; 93010; 93306; 93880; 94640; G0378; A9270-GY; J1650